=== PATIENT | male | born 1990 | race Hispanic/Latino ===

== ENCOUNTER 2017-11-26 12:41 | Emergency (ER) | payer SELFPAY ==
[2017-11-26] MEDS ORDERED: NACL 0.9% 1000 ML 1,000 ML IV ONE (12:55)
[2017-11-26 13:49] LABS: Basophils % (Auto) 0.2 % (0.0-1.8); Eosinophils # (Auto) 0.2 K/mm3 (0.0-0.4); Eosinophils % (Auto) 2.1 % (0.0-4.3); Hematocrit 41.3 % (35.5-45.6); Lymphocytes # (Auto) 1.6 K/mm3 (1.2-5.4); Lymphocytes % (Auto) 20.5 % (13.4-35.0); Mean Corpuscular HGB Conc 34 % (32-34); Mean Corpuscular Hemoglobin 30 pg (28-32); Mean Corpuscular Volume 88 fl (84-94); Monocytes % (Auto) 12.7 % (0.0-7.3); Platelet Count 243 K/mm3 (140-440); Red Blood Count 4.71 M/mm3 (3.65-5.03); Red Cell Distribution Width 13.4 % (13.2-15.2)
[2017-11-26 14:04] LABS: Bilirubin,Urine NEG (Negative); Color,Urine Yellow (Yellow)
[2017-11-26 14:05] LABS: Blood,Urine MOD (Negative); Mucus,Urine FEW /HPF; Protein,Urine <15 mg/dL mg/dL (Negative); Urobilinogen,Urine < 2.0 mg/dL (<2.0)
[2017-11-26] MEDS ORDERED: MORPHINE IV ONE (14:09)
[2017-11-26] MEDS ORDERED: ZOFRAN IV ONE (14:10)
--- NOTE | 2017-11-26 14:15 | Emergency Department Report ---
ED Abdominal Pain HPI - General Chief Complaint: Abdominal Pain Stated Complaint: ABD PAIN/HERNIA Time Seen by Provider: 11/26/17 14:03 Source: patient Mode of arrival: Ambulatory Limitations: No Limitations - History of Present Illness Initial Comments: 27-year-old male with history of right inguinal hernia presents to ED with worsening pain of the hernia over the last few days. Patient reports pain is radiating up into right lower quadrant and right upper quadrant of abdomen. Denies fever. Reports nausea, no vomiting. Last bowel movement was yesterday. MD Complaint: abdominal pain -: Gradual, days(s) (3) Location: RLQ Radiation: RUQ Severity: moderate Quality: aching Consistency: intermittent Improves With: other (laying supine) Worsens With: other (standing) Associated Symptoms: nausea. denies: vomiting, diarrhea - Related Data Previous Rx's Medication Instructions Recorded Last Taken Type Naproxen [Naprosyn] 500 mg PO BID #20 tablet 11/26/17 Unknown Rx Ondansetron [Zofran Odt] 4 mg PO Q8HR PRN #20 tab.rapdis 11/26/17 Unknown Rx traMADol [Ultram] 50 mg PO Q6HR PRN #7 tablet 11/26/17 Unknown Rx Allergies Allergy/AdvReac Type Severity Reaction Status Date / Time No Known Allergies Allergy Unverified 11/26/17 12:55 ED Review of Systems ROS: Stated complaint: ABD PAIN/HERNIA Other details as noted in HPI Comment: All other systems reviewed and negative Constitutional: denies: chills, fever Gastrointestinal: abdominal pain, nausea ED Past Medical Hx - Past Medical History Previous Medical History?: Yes Additional medical history: Hernia - Surgical History Past Surgical History?: No - Social History Smoking Status: Former Smoker Substance Use Type: Alcohol - Medications Home Medications: Home Medications Medication Instructions Recorded Confirmed Last Taken Type Naproxen [Naprosyn] 500 mg PO BID #20 tablet 11/26/17 Unknown Rx Ondansetron [Zofran Odt] 4 mg PO Q8HR PRN #20 tab.rapdis 11/26/17 Unknown Rx traMADol [Ultram] 50 mg PO Q6HR PRN #7 tablet 11/26/17 Unknown Rx ED Physical Exam - General Limitations: No Limitations General appearance: alert, in no apparent distress - Head Head exam: Present: atraumatic, normocephalic - Eye Eye exam: Present: normal appearance - ENT ENT exam: Present: mucous membranes moist - Neck Neck exam: Present: normal inspection - Respiratory Respiratory exam: Present: normal lung sounds bilaterally. Absent: respiratory distress - Cardiovascular Cardiovascular Exam: Present: regular rate, normal rhythm - GI/Abdominal GI/Abdominal exam: Present: soft, tenderness (mild tenderness to RLQ, periumbilical region), hernia (right inguinal hernia present, not incarcerated) - Extremities Exam Extremities exam: Present: normal inspection - Neurological Exam Neurological exam: Present: alert, oriented X3 - Psychiatric Psychiatric exam: Present: normal affect, normal mood - Skin Skin exam: Present: warm, dry, intact, normal color ED Course Vital Signs 11/26/17 12:51 Temperature 99.0 F Pulse Rate 84 Blood Pressure 126/87 O2 Sat by Pulse 99 Oximetry ED Medical Decision Making - Lab Data Result diagrams: 11/26/17 13:29 11/26/17 13:29 - Radiology Data Radiology results: report reviewed, image reviewed - Medical Decision Making 23-year-old male with pain from right inguinal hernia. Moderate-sized right inguinal hernia present, mild tenderness on exam. No signs of incarceration on exam. CT shows visceral fat within the hernia, no bowel. Vital signs normal. Labs normal. Informed patient of need to follow up with surgeon for elective hernia repair. Patient given return precautions and follow-up information. Will give prescription for pain meds. - Differential Diagnosis bowel obstruction, strangulated hernia, simple hernia Critical care attestation.: If time is entered above; I have spent that time in minutes in the direct care of this critically ill patient, excluding procedure time. ED Disposition Clinical Impression: Right inguinal hernia Disposition: DC- TO HOME OR SELFCARE Is pt being admited?: No Condition: Stable Instructions: Inguinal Hernia (ED) Prescriptions: Naproxen [Naprosyn] 500 mg PO BID #20 tablet Ondansetron [Zofran Odt] 4 mg PO Q8HR PRN #20 tab.rapdis PRN Reason: Vomiting traMADol [Ultram] 50 mg PO Q6HR PRN #7 tablet PRN Reason: Pain Referrals: PAU PATHAK MD [Staff Physician] - 3-5 Days [facility] [Provider Group] - 3-5 Days [facility] [Outside] - 3-5 Days Time of Disposition: 15:28
[2017-11-26 14:19] LABS: Alanine Aminotransferase 19 units/L (7-56); Albumin 4.6 g/dL (3.9-5); BUN/Creatinine Ratio 10; Blood Urea Nitrogen 9 mg/dL (9-20); Calcium 9.7 mg/dL (8.4-10.2); Hemolysis Index 3
--- NOTE | 2017-11-26 15:08 | Cat Scan Report ---
FINAL REPORT EXAM: CT ABDOMEN PELVIS W CON HISTORY: abd pain, inguinal hernia TECHNIQUE: CT abdomen and pelvis performed. Images extend from diaphragm to pubic symphysis. 100 cc Omnipaque 300 IV was administered. No oral contrast was administered. Axial images and coronal and sagittal reformatted images were obtained. PRIORS: None. FINDINGS: The visualized aspects of the lung bases are clear. There is cholelithiasis. The visualized liver, spleen, pancreas, adrenal glands and kidneys demonstrate no significant abnormalities. There is no abdominal aortic aneurysm. There is no evidence of intestinal obstruction. The appendix is normal. There is no free intraperitoneal air. There are no abnormal fluid collections seen. The bladder is unremarkable. There is a moderate-sized right inguinal hernia extending into the right hemiscrotum. It contains fat only. IMPRESSION: Moderate-sized fat containing right inguinal hernia extending into the right hemiscrotum. Cholelithiasis.
[2017-11-26 16:12] VITALS: BP 120/78
== END 2017-11-26 16:05 | disposition home or self-care (01) ==
LOC: ED 12:41
DX: K40.90 Unilateral inguinal hernia, without obstruction or gangrene, not specified as recurrent (principal); Z87.891 Personal history of nicotine dependence
CPT/HCPCS: 36415; 74177; 80053; 81001; 85025; 96374; 96375; 99284; J2270; J2405; J7030; Q9967